=== PATIENT | female | born 1955 | race African-American/Black ===

== ENCOUNTER 2016-07-25 12:36 | Emergency (ER) | payer BC ==
[2016-07-25] MEDS ORDERED: Adacel (T-DAP) 0.5 ML VIAL ONE (12:53)
[2016-07-25] MEDS ORDERED: AMOXicillin 250 MG CAP ONE (12:53)
--- NOTE | 2016-07-25 13:20 | ERRECORD ---
[facility] EMERGENCY RECORD HPI GENERAL (12:54 JPIP) CHIEF COMPLAINT: Patient presents for evaluation of patient states she fell 3 days [employer] and cut her lip. States it's swollen painful and has drained puss. HISTORIAN: History provided by patient. MECHANISM OF INJURY: Known mechanism, Mechanism of injury fall, from standing. LOCATION: Symptoms are localized, most severe to lower lip. SEVERITY: Current severity of pain rated as 7/10. TIME COURSE: Sudden onset of symptoms, 3, days ago, Symptoms are worsening, are constant. ASSOCIATED WITH: Associated with purulent drainage, no fever no chills no nausea or vomiting. EXACERBATED BY: Patient's condition exacerbated by moving lip, touch. RELIEVED BY: Patient's condition relieved by nothing. ROS (12:55 JPIP) ENT: swollen tender lip. GI: Historian denies nausea, denies vomiting. NOTES: All systems reviewed, negative except as described above. PAST MEDICAL HISTORY MEDICAL HISTORY: Past medical history includes neurological disease, migraine headaches, Past medical history includes pulmonary disease, asthma. (12:41 KMOR) FEMALE SURGICAL HISTORY: GASTRIC BYPASS, Surgical history of hysterectomy. right ankle surgery. (12:41 KMOR) PSYCHIATRIC HISTORY: Psychiatric history includes, anxiety, depression. (12:41 KMOR) SOCIAL HISTORY: Patient drinks socially, Patient denies drug use, Patient has no smoking history. (12:41 KMOR) NOTES: Nursing records reviewed, Medication list reviewed. (12:57 JPIP) KNOWN ALLERGIES No Known Drug Allergies CURRENT MEDICATIONS (12:48 KMOR) Unknown VITAL SIGNS VITAL SIGNS: BP: 149/103, Pulse: 103, Resp: 18, Temp: 98.0 (Oral), Pain: 7, O2 sat: 100 on Room Air, Time: 07/25/2016 12:39. (12:39 KMOR) BP: 136/92, Time: 07/25/2016 12:44. (12:44 KMOR) PHYSICAL EXAM (12:56 JPIP) &a-1R&a+25V*p+0X*n0818C*c202B*c15G*c2P*p-0X&a-25V&a+1R Name: Renato Connolly : 1955 F61 MedRec: [id number] AcctNum: [id number] Prepared: SatJul 25, 2016 13:18 by Interface Page 1 of 3 pMD [facility] EMERGENCY RECORD CONSTITUTIONAL: Vital signs reviewed, Patient afebrile, Pulse, tachycardic, Blood pressure, hypertensive, Respiratory rate normal, Patient appears in pain, in mild pain distress, Patient alert and oriented to person, place and time. HEAD: Head exam included findings of head atraumatic, normocephalic. EYES: Eye exam included findings of eyelids normal to inspection, Conjunctiva normal, Sclera normal, no periorbital ecchymosis, no periorbital edema, no periorbital erythema. ENT: Teeth with, poor dentition, lower lip swollen, TTP scabbed and with purulent crusting, no open wounds. NECK: no cervical adenopathy, no tenderness. RESPIRATORY CHEST: Respiratory exam included findings of no respiratory distress. NEURO: [place] coma scale 15. SKIN: Skin exam included findings of skin warm, dry, and normal in color. LYMPHATIC: Lymphatic exam included findings of cervical nodes normal, Submandibular normal. PSYCHIATRIC: Affect, flat. MEDICATION ADMINISTRATION SUMMARY Drug Name: Adacel(Tdap Adolesn/Adult)(PF), Dose Ordered: 0.5 mL, Route: Intramuscular, Status: Given, Time: 12:59 07/25/2016, Drug Name: Amoxil, Dose Ordered: 1000 mg, Route: Oral, Status: Given, Time: 12:58 07/25/2016, Detailed record available in Medication Service section. PROBLEM LIST No recorded problems DIAGNOSIS (12:51 JPIP) FINAL: PRIMARY: infected lip laceration. PRESCRIPTION Amoxil: CAPSULE (HARD, SOFT, ETC.) : 500 mg : ORAL : Quantity: 1 Unit: mg Route: ORAL Schedule: 3 times a day (after meals) Dispense: 30 May substitute. Refills: No Refills . (12:50 JPIP) NOTES: No refills. (12:50 JPIP) Ultram: TABLET : 50 mg : ORAL : Quantity: 1-2 Unit: tab(s) Route: ORAL Schedule: every 8 hours PRN Dispense: 20 May substitute. Refills: No Refills . (12:53 JPIP) NOTES: for pain No refills. (12:53 JPIP) DISPOSITION PATIENT: Disposition Type: Discharge, Disposition: *Discharge &a-1R&a+25V*p+0X*e5227J*c202B*c15G*c2P*p-0X&a-25V&a+1R Name: MohsenRenato : 1955 F61 MedRec: [id number] AcctNum: [id number] Prepared: SatJul 25, 2016 13:18 by Interface Page 2 of 3 pMD [facility] EMERGENCY RECORD Home, Condition: Good. (12:51 JPIP) Patient left the department. (13:15 KMOR) Antunez: LUKASIP=DO Hughes Joseph KMOR=KARYN Shoemaker, Kim &a-1R&a+25V*p+0X*s5330J*c202B*c15G*c2P*p-0X&a-25V&a+1R Name: Renato Connolly : 1955 F61 MedRec: [id number] AcctNum: [id number] Prepared: SatJul 25, 2016 13:18 by Interface Page 3 of 3 pMD MTDD
--- NOTE | 2016-07-25 13:26 | PICIS ---
[facility] EMERGENCY RECORD TRIAGE (SatJul 25, 2016 12:39 KMOR) TRIAGE NOTES: Lip laceration on Saturday, possible infection. (SatJul 25, 2016 12:39 KMOR) PATIENT: NAME: Renato Connolly, AGE: 61, GENDER: female, : Sat1955, TIME OF GREET: SatJul 25, 2016 12:36, PREFERRED LANGUAGE: Lao, ETHNICITY: Not or , ECODE BILLING MAP: [facility], SSN: [id number], Zip Code: [address], KG WEIGHT: 54.43, PHONE: , , , PERSON ID: [id number], PAYMENT: PAULINO Oliveira, PCP: MD Shell Kyle. (SatJul 25, 2016 12:39 KMOR) COMPLAINT: Lip laceration. (SatJul 25, 2016 12:39 KMOR) ADMISSION: URGENCY: 4 Non Urgent, ADMISSION SOURCE: Home, TRANSPORT: CAR, BED: ER -03. (SatJul 25, 2016 12:39 KMOR) ASSESSMENT: Assessment: A&OX4, RR EVEN AND UNLABORED., Symptoms began 3 days ago. (12:41 KMOR) PAIN: Patient complains of pain described as, pressure, on a scale 0-10 patient rates pain as 7, Location LOWER LIP. (12:41 KMOR) IMMUNIZATIONS: Tetanus not up to date. (12:41 KMOR) SIRS SCORING: Heart Rate 55-109 (0), Temp range 96.8-101.1 (0), respiratory rate 12-24 (0), Mental Status altered: no (0), Infection or Suspected Infection: No. (12:41 KMOR) TRIAGE SCREENING: Patient denies suicidal ideation, Patient denies presence of domestic violence. (12:41 KMOR) LMP: LMP: Hysterectomy. (12:41 KMOR) PROVIDERS: TRIAGE NURSE: Kim Shoemaker RN. (SatJul 25, 2016 12:39 KMOR) VITAL SIGNS: BP 149/103, Pulse 103, Resp 18, Temp 98.0, (Oral), Pain 7, O2 Sat 100, on Room Air, Time 07/25/2016 12:39. (12:39 KMOR) PREVIOUS VISIT ALLERGIES: No Known Drug Allergies. (SatJul 25, 2016 12:39 KMOR) No Known Drug Allergies. (12:41 KMOR) KNOWN ALLERGIES No Known Drug Allergies CURRENT MEDICATIONS (12:48 KMOR) Unknown VITAL SIGNS VITAL SIGNS: BP: 149/103, Pulse: 103, Resp: 18, Temp: 98.0 (Oral), Pain: 7, O2 sat: 100 on Room Air, Time: 07/25/2016 12:39. (12:39 KMOR) BP: 136/92, Time: 07/25/2016 12:44. (12:44 KMOR) NURSING ASSESSMENT: ENT (12:48 KMOR) CONSTITUTIONAL: Patient arrives ambulatory, Gait steady, History obtained from patient, Patient appears, uncomfortable, Patient cooperative, Patient alert, Oriented to person, place and time, Skin warm, Skin dry, Skin normal in color, Mucous membranes &a-1R&a+25V*p+0X*k0506U*c202B*c15G*c2P*p-0X&a-25V&a+1R Name: Renato Connolly : 1955 F61 MedRec: [id number] AcctNum: [id number] Prepared: SatJul 25, 2016 13:24 by Interface Page 1 of 5 pMD [facility] EMERGENCY RECORD pink, Mucous membranes moist, Patient is well-groomed, Patient complains of Lower lip laceration, Patient reports she fell on Saturday, reports busting lower lip, concerned today for infection due to swelling. PAIN: pressure pain, lower lip, on a scale 0-10 patient rates pain as 7. ENT: Ear assessment findings include ear normal to inspection, Nasal assessment findings include nose normal to inspection, Sinuses normal, Nasal mucosa normal, Mouth and throat assessment findings include mouth, swelling to lower lip, no associated fever. NOTES: Patient tolerated procedure well. MEDICATION ADMINISTRATION SUMMARY Drug Name: Adacel(Tdap Adolesn/Adult)(PF), Dose Ordered: 0.5 mL, Route: Intramuscular, Status: Given, Time: 12:59 07/25/2016, Drug Name: Amoxil, Dose Ordered: 1000 mg, Route: Oral, Status: Given, Time: 12:58 07/25/2016, Detailed record available in Medication Service section. MEDICATION SERVICE Adacel(Tdap Adolesn/Adult)(PF): Order: Adacel(Tdap Adolesn/Adult)(PF) (diphth,pertuss(acell),tet vac/preservative free) - Dose: 0.5 mL : Intramuscular Schedule: Now Ordered by: Familia Hughes DO Entered by: Familia Hughes DO SatJul 25, 2016 12:50 , Acknowledged by: Kim Shoemaker RN SatJul 25, 2016 12:51 Documented as given by: Kim Shoemaker RN SatJul 25, 2016 12:59 Patient, Medication, Dose, Route and Time verified prior to administration. IM immunization, Amount given: 0.5ml, Medication administered to left deltoid, vascular nurse: adacel, lot number: [id number], expiration: , Correct patient, time, route, dose and medication confirmed prior to administration, Patient advised of actions and side-effects prior to administration, Allergies confirmed and medications reviewed prior to administration, Patient in position of comfort, Side rails up, Cart in lowest position. : Follow Up : Response assessment performed, No signs or symptoms of allergic reaction noted. (13:15 KMOR) Amoxil: Order: Amoxil (amoxicillin trihydrate) - Dose: 1000 mg : Oral Schedule: Now Ordered by: Familia Hughes DO Entered by: Familia Hughes DO SatJul 25, 2016 12:50 , Acknowledged by: Kim Shoemaker RN SatJul 25, 2016 12:51 Documented as given by: Kim Shoemaker RN SatJul 25, 2016 12:58 Patient, Medication, Dose, Route and Time verified prior to administration. &a-1R&a+25V*p+0X*c8239E*c202B*c15G*c2P*p-0X&a-25V&a+1R Name: Renato Connolly Tegan : 1955 F61 MedRec: [id number] AcctNum: [id number] Prepared: SatJul 25, 2016 13:24 by Interface Page 2 of 5 pMD [facility] EMERGENCY RECORD Amount given: 1000ml, Site: Medication administered P.O., Correct patient, time, route, dose and medication confirmed prior to administration, Patient advised of actions and side-effects prior to administration, Allergies confirmed and medications reviewed prior to administration, Patient in position of comfort, Side rails up, Cart in lowest position. : Follow Up : Response assessment performed, No signs or symptoms of allergic reaction noted. (13:15 KMOR) HPI GENERAL (12:54 JPIP) CHIEF COMPLAINT: Patient presents for evaluation of patient states she fell 3 days [employer] WORK[employer] and cut her lip. States it's swollen painful and has drained puss. HISTORIAN: History provided by patient. MECHANISM OF INJURY: Known mechanism, Mechanism of injury fall, from standing. LOCATION: Symptoms are localized, most severe to lower lip. SEVERITY: Current severity of pain rated as 7/10. TIME COURSE: Sudden onset of symptoms, 3, days ago, Symptoms are worsening, are constant. ASSOCIATED WITH: Associated with purulent drainage, no fever no chills no nausea or vomiting. EXACERBATED BY: Patient's condition exacerbated by moving lip, touch. RELIEVED BY: Patient's condition relieved by nothing. ROS (12:55 JPIP) ENT: swollen tender lip. GI: Historian denies nausea, denies vomiting. NOTES: All systems reviewed, negative except as described above. PAST MEDICAL HISTORY MEDICAL HISTORY: Past medical history includes neurological disease, migraine headaches, Past medical history includes pulmonary disease, asthma. (12:41 KMOR) FEMALE SURGICAL HISTORY: GASTRIC BYPASS, Surgical history of hysterectomy. right ankle surgery. (12:41 KMOR) PSYCHIATRIC HISTORY: Psychiatric history includes, anxiety, depression. (12:41 KMOR) SOCIAL HISTORY: Patient drinks socially, Patient denies drug use, Patient has no smoking history. (12:41 KMOR) NOTES: Nursing records reviewed, Medication list reviewed. (12:57 JPIP) PHYSICAL EXAM (12:56 JPIP) CONSTITUTIONAL: Vital signs reviewed, Patient afebrile, Pulse, tachycardic, Blood pressure, hypertensive, Respiratory rate normal, Patient appears &a-1R&a+25V*p+0X*t3004E*c202B*c15G*c2P*p-0X&a-25V&a+1R Name: Renato Connolly : 1955 F61 MedRec: [id number] AcctNum: [id number] Prepared: SatJul 25, 2016 13:24 by Interface Page 3 of 5 pMD [facility] EMERGENCY RECORD in pain, in mild pain distress, Patient alert and oriented to person, place and time. HEAD: Head exam included findings of head atraumatic, normocephalic. EYES: Eye exam included findings of eyelids normal to inspection, Conjunctiva normal, Sclera normal, no periorbital ecchymosis, no periorbital edema, no periorbital erythema. ENT: Teeth with, poor dentition, lower lip swollen, TTP scabbed and with purulent crusting, no open wounds. NECK: no cervical adenopathy, no tenderness. RESPIRATORY CHEST: Respiratory exam included findings of no respiratory distress. NEURO: [place] coma scale 15. SKIN: Skin exam included findings of skin warm, dry, and normal in color. LYMPHATIC: Lymphatic exam included findings of cervical nodes normal, Submandibular normal. PSYCHIATRIC: Affect, flat. EVENTS TRANSFER: Triage to Emergency Emergency Room -03. (SatJul 25, 2016 12:39 KMOR) Removed from Emergency Emergency Room -03. (13:15 KMOR) O2SAT INTERPRETATION (12:57 JPIP) O2SAT: Single pulse oximetry, Oxygen saturation 100%, on room air, Oxygen saturation interpretation: Normal, No intervention required. PROBLEM LIST No recorded problems DIAGNOSIS (12:51 JPIP) FINAL: PRIMARY: infected lip laceration. DISPOSITION PATIENT: Disposition Type: Discharge, Disposition: *Discharge Home, Condition: Good. (12:51 JPIP) Patient left the department. (13:15 KMOR) INSTRUCTION (12:51 JPIP) DISCHARGE: CELLULITIS, LIP LACERATION. FO[facility]UP: [facility] [address] [place] [address], . SPECIAL: Finish all your antibiotics Follow up with Primary Care Physician within 72 hours Return to the Emergency Department for increased symptoms problems or concerns Take acetaminophen or ibuprofen for pain Apply moist heat 4-5 times a day. &a-1R&a+25V*p+0X*n4781S*c202B*c15G*c2P*p-0X&a-25V&a+1R Name: Renato Connolly Tegan : 1955 F61 MedRec: [id number] AcctNum: [id number] Prepared: SatJul 25, 2016 13:24 by Interface Page 4 of 5 pMD [facility] EMERGENCY RECORD PRESCRIPTION Amoxil: CAPSULE (HARD, SOFT, ETC.) : 500 mg : ORAL : Quantity: 1 Unit: mg Route: ORAL Schedule: 3 times a day (after meals) Dispense: 30 May substitute. Refills: No Refills . (12:50 JPIP) NOTES: No refills. (12:50 JPIP) Ultram: TABLET : 50 mg : ORAL : Quantity: 1-2 Unit: tab(s) Route: ORAL Schedule: every 8 hours PRN Dispense: 20 May substitute. Refills: No Refills . (12:53 JPIP) NOTES: for pain No refills. (12:53 JPIP) Antunez: LILLY=DO Hughes Joseph KMOR=KARYN Shoemaker, Kim &a-1R&a+25V*p+0X*x5307M*c202B*c15G*c2P*p-0X&a-25V&a+1R Name: Renato Connolly : 1955 F61 MedRec: [id number] AcctNum: [id number] Prepared: SatJul 25, 2016 13:24 by Interface Page 5 of 5 pMD MTDD
== END 2016-07-25 13:12 | disposition home or self-care (01) ==
LOC: BURERS 12:36
DX: S01.511A Laceration without foreign body of lip, initial encounter (principal); J45.909 Unspecified asthma, uncomplicated; F32.9 Major depressive disorder, single episode, unspecified; F41.9 Anxiety disorder, unspecified; Z90.710 Acquired absence of both cervix and uterus; W45.8XXA Other foreign body or object entering through skin, initial encounter
CPT/HCPCS: 90471; 90715

== ENCOUNTER 2016-09-03 07:40 | Outpatient (CLI) | payer BC ==
--- NOTE | 2016-09-04 07:34 | MRI ---
MRI BRAIN WITHOUT CONTRAST: HISTORY: Intermittent dizziness. FINDINGS: No evidence of infarct, hemorrhage, midline shift, or abnormal extraaxial fluid collections are seen . The ventricular size is appropriate and the basilar cisterns are patent. No restricted diffusion is identified. There are a few foci of T2 prolongation in the periventricular white matter likely due to mild chronic small-vessel ischemic disease. There is mild mucosal disease in the paranasal s inuses. The mastoid air cells are well aerated. IMPRESSION: No evidence of acute intracranial process. POS: [facility]
== END 2016-09-03 07:41 | disposition home or self-care (01) ==
LOC: BURMRI 07:40
PROVIDERS: ATTEND Family Medicine
DX: R42 Dizziness and giddiness (principal)
CPT/HCPCS: 70551

== ENCOUNTER 2016-09-11 11:49 | Outpatient (CLI) | payer BC | END 2016-09-11 11:50 | LOC: HPCALD 11:49 | PROVIDERS: ATTEND Physician Assistant | DX: Z01.419 Encounter for gynecological examination (general) (routine) without abnormal findings (principal) | CPT/HCPCS: 36415 ==

== ENCOUNTER 2016-11-04 12:10 | Emergency (ER) | payer BC ==
[2016-11-04 12:57] LABS: #Lymphocytes 1.3 thou/uL (1.20-3.40); #Monocytes 0.7 thou/uL (0.11-0.59); #Neutrophils 5.3 thou/uL (1.40-6.50); %Basophils 0.5 % (0.0-1.0); %Eosinophils 0.4 % (0.0-10.0); %Lymphocytes 17.4 % (21.0-51.0); %Monocytes 9.9 % (0.0-10.0); %Neutrophils 71.8 % (42.0-75.0); Hemoglobin 11.4 g/dL (12.0-16.0); Mean Corpuscular HGB CONC 34.5 g/dL (32.0-36.0); Mean Corpuscular Hemoglobin 37.3 pg (27.0-31.0); Mean Platelet Volume 6.8 fL (7.4-10.4); Platelet Count 116 thou/uL (130-400); RBC Distribution Width 15.2 % (11.5-14.5); Red Blood Cell (RBC) Count 3.05 mill/uL (4.20-5.40); White Blood Cell (WBC) Count 7.3 thou/uL (4.8-10.8)
[2016-11-04 13:01] LABS: ALT (SGPT) 18 U/L (0-55); AST (SGOT) 19 U/L (5-34); Albumin 3.9 g/dL (3.5-5.0); Alkaline Phosphatase 64 U/L (40-150); Anion Gap 12 mmol/L (10-20); BUN (Urea Nitrogen) 12 mg/dL (9.8-20.1); Calc. Creatinine Clearance 0 mL/min (70-130); Calcium 8.9 mg/dL (7.8-10.44); Carbon Dioxide 26 mmol/L (22-29); Chloride 106 mmol/L (98-107); Estimated GFR-MDRD Greater than 90; Globulin 2.9 g/dL (2.4-3.5); Glucose 125 mg/dL (70-105); Protein, Total 6.8 g/dL (6.0-8.3); Sodium 140 mmol/L (136-145); Uric Acid 6.6 mg/dL (2.6-6.0)
[2016-11-04 13:11] LABS: MDiff Complete? YES; Macrocytosis SLIGHT = 6-15 cells (100X) (0-5/hpf); PLT Morphology Comment Appears Decreased; Stomatocytes MODERATE= 6-15 cells (100X) (0-1/hpf)
[2016-11-04] MEDS ORDERED: predniSONE 20 MG TAB ONE (13:16)
[2016-11-04] MEDS ORDERED: Ketorolac Tromethamine 30 MG/ML VIAL ONE (13:22)
--- NOTE | 2016-11-04 13:23 | RAD ---
EXAM: LEFT FOOT 3 VIEWS: HISTORY: Pain since Saturday. COMPARISON: None. FINDINGS: There is soft tissue swelling. Lisfranc alignment is maintained. No fractures. Minimal degenerati ve change of the first metatarsophalangeal joint space. Plantar calcaneal spur is noted. IMPRESSION: Soft tissue swelling in the mid foot. No fracture. POS: [facility]
== END 2016-11-04 13:35 | disposition home or self-care (01) ==
LOC: BURERS 12:10
DX: M10.9 Gout, unspecified (principal); F32.9 Major depressive disorder, single episode, unspecified
CPT/HCPCS: 36415; 80053; 84550; 85025; 96372; J1885; J7506

== ENCOUNTER 2017-08-27 08:40 | Outpatient (CLI) | payer BC ==
--- NOTE | 2017-08-27 21:14 | CT ---
CT ABDOMEN AND PELVIS WITH CONTRAST 08/27/[address] of the abdomen and pelvis is done for evaluation of hyperbilirubinemia. Axial slices were a cquired after giving oral and IV contrast. Coronal reconstructions were subsequently done. The lung bases are clear except for perhaps a little atelectasis or scarring in the right base. The l iver was unremarkable in size. No space occupying lesions, dilated ducts, or contrast enhancing lesio ns were seen. There is one area in the medial right lobe near the falciform ligament that does not en berenice the same as the rest. This could be an area of focal fatty sparing. At any rate, I doubt its si gnificance. The spleen and pancreas were unremarkable. Neither the pancreatic duct nor common bile du ct seem dilated. No calcifications were seen in the gallbladder. The gallbladder wall thickness was n ormal. The adrenal glands appear normal. The kidneys showed no solid mass or hydronephrosis. A subcentimeter cyst is suggested in the left kidney. The abdominal aorta is normal in caliber. CT of the pelvis showed no pelvic masses, fluid collections, or inflammatory changes. There is a very large amount of fecal material in the colon without overt obstruction. While it is di fficult to see well in some areas in the upper abdomen as no enteric contrast was left in this region , a rounded that that some of the vessels drape around seems to be associated with the GE junction. I t is probably just a variation of normal. If there was any symptoms in this areas, then one could fol lowup with endoscopy, but currently my suspicion of significant pathology here is somewhat low. The lumbar spine shows some significant degenerative changes. This is particularly true in the lower lumbar region. The L3-L4 level in particular, shows evidence of significant spinal stenosis. IMPRESSION: 1. No significant hepatic abnormality seen. 2. Moderate constipation. 3. Slightly rounded area near the gastric fundus that is thought to be a somewhat unusual GE melissa ction. POS: [facility]
== END 2017-08-27 08:41 | disposition home or self-care (01) ==
LOC: BURCT 08:40
PROVIDERS: ATTEND Family Medicine
DX: E80.6 Other disorders of bilirubin metabolism (principal); K59.00 Constipation, unspecified
CPT/HCPCS: 74177

== ENCOUNTER 2018-05-21 12:13 | Emergency (ER) | payer BC ==
[2018-05-21] MEDS ORDERED: Ibuprofen 200 MG TAB ONE (12:54)
--- NOTE | 2018-05-21 13:51 | RAD ---
THREE VIEWS LEFT WRIST: Indication: Left wrist pain. FINDINGS: There is a nondisplaced comminuted but predominately transverse oriented fracture involving the metap hyseal region of the distal radius. There is slight dorsal angulation of the distal fracture fragment . There is soft tissue swelling surrounding the fracture site. Carpal alignment appears within normal limits. 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 IMPRESSION: Mildly angulated nondisplaced comminuted distal radius fracture. POS: [facility]
== END 2018-05-21 13:17 | disposition home or self-care (01) ==
LOC: BURERS 12:13
DX: S52.502A Unspecified fracture of the lower end of left radius, initial encounter for closed fracture (principal); F32.9 Major depressive disorder, single episode, unspecified; J45.909 Unspecified asthma, uncomplicated; W01.0XXA Fall on same level from slipping, tripping and stumbling without subsequent striking against object, initial encounter
CPT/HCPCS: 29125

== ENCOUNTER 2019-05-03 22:18 | Emergency (ER) | payer BC ==
[2019-05-03] MEDS ORDERED: predniSONE 20 MG TAB ONE (22:45)
[2019-05-03] MEDS ORDERED: diphenhydrAMINE 25 MG CAP ONE (22:45)
== END 2019-05-03 23:00 | disposition home or self-care (01) ==
LOC: BURERS 22:18
DX: T65.6X1A Toxic effect of paints and dyes, not elsewhere classified, accidental (unintentional), initial encounter (principal); L25.3 Unspecified contact dermatitis due to other chemical products; J45.909 Unspecified asthma, uncomplicated; M19.90 Unspecified osteoarthritis, unspecified site; F32.9 Major depressive disorder, single episode, unspecified; Z79.51 Long term (current) use of inhaled steroids; Z79.899 Other long term (current) drug therapy
CPT/HCPCS: 99282; J7512; Q0163

== ENCOUNTER 2020-07-05 09:47 | Emergency (ER) | payer BC ==
[2020-07-05] MEDS ORDERED: HYDROcodone/Acetaminophen 5/325 mg Tablet ONE (10:07)
[2020-07-05] MEDS ORDERED: Ibuprofen 200 MG TAB ONE (10:07)
--- NOTE | 2020-07-05 10:09 | RAD ---
RIGHT ANKLE 3 VIEWS: HISTORY: Injury, right ankle pain FINDINGS: Soft tissue swelling is present. There is a metallic pin in the shaft of the fibula extending to the inferior aspect of the lateral malleolus. Degenerative changes are present. The ankle mortise is maintained. No dislocation is identified. There is an age indeterminate fracture of the medial malleo diana and the posterior malleolus.
== END 2020-07-05 10:25 | disposition home or self-care (01) ==
LOC: BURERS 09:47
DX: S82.301A Unspecified fracture of lower end of right tibia, initial encounter for closed fracture (principal); W01.0XXA Fall on same level from slipping, tripping and stumbling without subsequent striking against object, initial encounter; Z79.899 Other long term (current) drug therapy; Z79.52 Long term (current) use of systemic steroids; J45.909 Unspecified asthma, uncomplicated; M19.90 Unspecified osteoarthritis, unspecified site

== ENCOUNTER 2021-02-04 20:15 | Emergency (ER) | payer BC ==
[2021-02-04] MEDS ORDERED: Famotidine 20 MG TAB ONE (21:17)
[2021-02-04] MEDS ORDERED: diphenhydrAMINE 25 MG CAP ONE (21:17)
[2021-02-04] MEDS ORDERED: predniSONE 20 MG TAB ONE (21:17)
[2021-02-04 22:27] LABS: Hemoglobin 11.9 g/dL (12.0-16.0); Mean Corpuscular HGB CONC 34.2 g/dL (32.0-36.0); Mean Corpuscular Hemoglobin 34.2 pg (27.0-31.0); Mean Platelet Volume 7.5 fL (7.4-10.4); Platelet Count 177 thou/uL (130-400); RBC Distribution Width 15.1 % (11.5-14.5); Red Blood Cell (RBC) Count 3.48 mill/uL (4.20-5.40); White Blood Cell (WBC) Count 7.8 thou/uL (4.8-10.8)
[2021-02-04 22:40] LABS: ALT (SGPT) 22 U/L (8-55); AST (SGOT) 31 U/L (5-34); Albumin 3.9 g/dL (3.4-4.8); Alkaline Phosphatase 101 U/L (40-110); Anion Gap 18 mmol/L (10-20); BUN (Urea Nitrogen) 9 mg/dL (9.8-20.1); Bilirubin, Total 1.9 mg/dL (0.2-1.2); Calc. Creatinine Clearance 0 mL/min (70-130); Calcium 9.1 mg/dL (7.8-10.44); Carbon Dioxide 20 mmol/L (23-31); Chloride 99 mmol/L (98-107); Globulin 3.4 g/dL (2.4-3.5); Glucose 178 mg/dL (80-115); Potassium 3.5 mmol/L (3.5-5.1); Protein, Total 7.3 g/dL (5.8-8.1); Sodium 133 mmol/L (136-145)
[2021-02-04 23:09] LABS: #Lymphocytes 1.3 thou/uL (1.20-3.40); #Monocytes 0.6 thou/uL (0.11-0.59); #Neutrophils 5.9 thou/uL (1.40-6.50); %Basophils 0.6 % (0.0-1.0); %Eosinophils 0.4 % (0.0-10.0); %Lymphocytes 16.2 % (21.0-51.0); %Monocytes 7.2 % (0.0-10.0); %Neutrophils 75.5 % (42.0-75.0); Platelet Morphology Comment Appears Adequate; RBC Morphology Normal
== END 2021-02-04 23:16 | disposition home or self-care (01) ==
LOC: BURERS 20:15
DX: L29.9 Pruritus, unspecified (principal); T78.1XXA Other adverse food reactions, not elsewhere classified, initial encounter; E11.9 Type 2 diabetes mellitus without complications
CPT/HCPCS: 80053; 84484; 85025; J7512; Q0163

== ENCOUNTER 2021-05-21 19:12 | Emergency (ER) | payer OTHER, BC ==
[2021-05-21] MEDS ORDERED: Lidocaine 1% w/Epinephrine 1:100K 20 ML VIAL ONE (19:35)
[2021-05-21] MEDS ORDERED: Boostrix 0.5 ML (Tdap) VIAL ONE (20:32)
[2021-05-21] MEDS ORDERED: HYDROcodone/Acetaminophen 5/325 mg Tablet ONE (21:12)
== END 2021-05-21 21:25 | disposition home or self-care (01) ==
LOC: BURERS 19:12
DX: S01.81XA Laceration without foreign body of other part of head, initial encounter (principal); H11.31 Conjunctival hemorrhage, right eye; Z23 Encounter for immunization; W01.198A Fall on same level from slipping, tripping and stumbling with subsequent striking against other object, initial encounter
CPT/HCPCS: 12011; 70450; 70486; 72125; 90471; 90715